=== PATIENT | male | born 1995 | race Caucasian/White ===

== ENCOUNTER 2016-07-27 21:14 | Emergency (ER) | payer SELFPAY ==
[2016-07-27] MEDS ORDERED: PERCOCET PO (22:10)
[2016-07-27] MEDS ORDERED: PERCOCET1 TA2 PO (22:15)
[2016-07-27] MEDS ORDERED: OXYCOD-APAP1 TA1 PO (22:31)
[2016-07-28 00:35] VITALS: BP 132/68
== END 2016-07-28 00:35 | disposition home or self-care (01) | DRG 563 ==
LOC: ED 21:14
DX: S39.012A Strain of muscle, fascia and tendon of lower back, initial encounter (principal); M54.30 Sciatica, unspecified side; W18.30XA Fall on same level, unspecified, initial encounter; Y92.009 Unspecified place in unspecified non-institutional (private) residence as the place of occurrence of the external cause

== ENCOUNTER 2017-06-25 02:17 | Emergency (ER) | payer SELFPAY ==
[~2017-06-25] VITALS: Ht 177.8 cm; Wt 114.0 kg
[~2017-06-25 02:17] MED LIST: OXYCOD-APAP1 TA1 PO; PERCOCET PO; PERCOCET1 TA2 PO
[2017-06-25 02:54] LABS: HEMATOCRIT 35.6 % (39.0-50.0); HEMOGLOBIN 11.8 g/dl (14.0-18.0); IMMATURE GRANULOCYTES 0.4 % (0.0-1.0); MEAN CELL VOLUME 83.6 fL CALC (80.0-100.0); MEAN CORPUSCULAR HGB 27.7 pG CALC (26.0-32.0); MEAN CORPUSCULAR HGB CONC 33.1 g/L CALC (32.0-36.0); NEUT# 4.85 thou/uL (1.82-7.42); RED BLOOD COUNT 4.26 mill/uL (4.70-6.10); RED CELL DISTRI WIDTH 12.6 % (11.5-15.5)
[2017-06-25 03:12] LABS: ALBUMIN 3.7 g/dL (3.2-5.0); ALKALINE PHOSPHATASE 50 u/l (38-126); ANION GAP 20 (6-22 (CALC)); BILIRUBIN, TOTAL 0.2 mg/dL (0.0-1.4); BUN 8 mg/dL (9-20); BUN/CREATININE RATIO 9 (12-20 (CALC)); CARBON DIOXIDE 24 mmol/l (22-30); CHLORIDE 102 mmol/l (95-108); CREATININE 0.8 mg/dL (0.7-1.3); ETHYL ALCOHOL 60 mg/dl (0-30); GFR > 60 ML/MIN (>=60 (CALC)); GFR FOR AFR.AMER. > 60 ML/MIN (>=60 (CALC)); POTASSIUM 3.3 mmol/l (3.5-5.1); SGOT/AST 33 u/l (17-59); SGPT/ALT 47 u/l (21-72); SODIUM 143 mmol/l (137-146); TOTAL PROTEIN 6.1 g/dL (6.3-8.2)
[2017-06-25 05:01] LABS: URINE BILIRUBIN - DIPSTICK NEGATIVE (NEGATIVE); URINE BLOOD DIPSTICK NEGATIVE (NEGATIVE); URINE COLOR YELLOW; URINE GLUCOSE - DIPSTICK NEGATIVE (NEGATIVE); URINE KETONE NEGATIVE (NEGATIVE); URINE LEUK ESTERASE NEGATIVE (NEGATIVE); URINE NITRITE - DIPSTICK NEGATIVE (Negative); URINE PH 6.5 (4.5-8.0); URINE PROTEIN - DIPSTICK NEGATIVE (NEG-TRACE); URINE SPECIFIC GRAVITY <=1.005; URINE UROBILINOGEN - DIPSTICK 0.2 E.U./dL (0.2)
[2017-06-25 05:03] LABS: URINE CLARITY CLEAR
[2017-06-25 05:12] LABS: BARBITURATES NEGATIVE (NEGATIVE); COCAINE POSITIVE (NEGATIVE); METHADONE POSITIVE (NEGATIVE); OXCYCODONE NEGATIVE (NEGATIVE); TETRAHYDROCANNABIONOL NEGATIVE (NEGATIVE); TRICYLIC ANTIDEPRESSANTS NEGATIVE (NEGATIVE)
[2017-06-25] MEDS ORDERED: AMOXICILLIN500 MG PO (06:26)
[2017-06-25 06:52] VITALS: BP 145/80
== END 2017-06-25 08:31 | disposition home or self-care (01) | DRG 605 ==
LOC: ED 02:17
PROVIDERS: Emergency Medicine
PROC: 2W3QX1Z Immobilization of Right Lower Leg using Splint (ICD-10-PCS; principal; 2017-06-25)
PROC: 0HQ6XZZ Repair Back Skin, External Approach (ICD-10-PCS; 2017-06-25)
PROC: 0HQDXZZ Repair Right Lower Arm Skin, External Approach (ICD-10-PCS; 2017-06-25)
PROC: 0HQBXZZ Repair Right Upper Arm Skin, External Approach (ICD-10-PCS; 2017-06-25)
DX: S21.211A Laceration without foreign body of right back wall of thorax without penetration into thoracic cavity, initial encounter (principal); F10.10 Alcohol abuse, uncomplicated; S51.811A Laceration without foreign body of right forearm, initial encounter; S82.54XA Nondisplaced fracture of medial malleolus of right tibia, initial encounter for closed fracture; S41.111A Laceration without foreign body of right upper arm, initial encounter; F19.10 Other psychoactive substance abuse, uncomplicated; X99.9XXA Assault by unspecified sharp object, initial encounter; Y03.0XXA Assault by being hit or run over by motor vehicle, initial encounter; Y92.29 Other specified public building as the place of occurrence of the external cause
CPT/HCPCS: J2060; Q9967